=== PATIENT | male | born 1980 | race Hispanic/Latino ===

== ENCOUNTER → 2024-12-20 07:39 | Outpatient (REF) | payer OTHER, SELFPAY ==
[2024-12-20 08:34] LABS: Urine Character Clear (Clear)
[2024-12-20 08:57] LABS: Hematocrit 44.5 % (39.0-52.0); Hemoglobin 15.7 g/dL (13.0-18.0); Mean Corp Hgb Conc. 35.3 g/dL (33.0-37.0); Mean Corpuscular Volume 87.8 fL (80.0-94.0); Nucleated Red Blood Cells % 0 % (-); Platelet Count 169 10^3/uL (130-400); Red Cell Dist. Width 12.1 % (11.5-14.5); Reticulocyte Count 1.4 % (0.4-2.8)
[2024-12-20 09:18] LABS: Glycohemoglobin (HgbA1c) 5.4 % (4.0-5.6)
[2024-12-20 09:46] LABS: ALT (SGPT) 34 U/L (0-50); AST (SGOT) 33 U/L (17-59); Albumin 4.3 g/dl (3.5-5.0); Alkaline Phosphatase 97 U/L (38-126); Blood Urea Nitrogen 13 mg/dl (9-20); Calcium 9.7 mg/dl (8.4-10.2); Carbon Dioxide 27 mmol/L (22-30); Chloride 106 mmol/L (98-107); Glucose 103 mg/dl (70-99); HDL Cholesterol 40 mg/dl; LDL Cholesterol, Calculated 143 mg/dl; Potassium 4.7 mmol/L (3.5-5.1); Sodium 138 mmol/L (135-145); Total Protein 7.4 g/dl (6.3-8.2); Very Low Density Lipoprotein 18 mg/dl (0-30); eGFR > 60.00
[2024-12-20 10:04] LABS: PSA, Total - Screen 0.97 ng/ml (0.0-4.0)
== END ==
LOC: CLINIC 07:39
PROVIDERS: ATTENDING PHYSICIAN Internal Medicine
DX: Z00.00 Encounter for general adult medical examination without abnormal findings (principal); R73.03 Prediabetes
CPT/HCPCS: 36415; 80053; 80061; 81003; 83036; 85025; 85045; G0103

== ENCOUNTER → 2024-12-21 08:48 | Outpatient (REF) | payer OTHER, SELFPAY ==
[2024-12-22 15:01] LABS: FIT-Fecal Occult Blood Interp Negative
== END ==
LOC: CLINIC 08:48
PROVIDERS: ATTENDING PHYSICIAN Internal Medicine
DX: Z00.00 Encounter for general adult medical examination without abnormal findings (principal)
CPT/HCPCS: 36415; 83520